=== PATIENT | male | born 1955 | race Caucasian/White ===

== ENCOUNTER 2019-07-27 12:32 | Outpatient (CLI) | payer BC ==
[2019-07-27 13:38] LABS: Bilirubin Negative (Negative); Blood, Urine Negative (Negative); Clarity Clear (Clear); Glucose, Urine (Dipstick) Negative (Negative); Leukocyte Negative (Negative); Nitrite Negative (Negative); Protein, Urine (Dipstick) Negative (Neg-Trace); Urobilinogen 0.2 mg/dL (Less than 2)
[2019-07-27 13:44] LABS: Bacteria/HPF None Seen HPF (None Seen); RBC/HPF None Seen HPF (0-3); Squamous Epithelial 0-3 HPF (0-3); WBC/HPF None Seen HPF (0-3)
--- NOTE | 2019-07-27 15:03 | ULT ---
SCROTAL ULTRASOUND: Date: 07/27/2019 INDICATION: Right side scrotal mass x5 months. FINDINGS: Both testicles have a homogeneous echotexture and appear symmetric. Both testicles exhibit normal and symmetric blood flow with color Doppler and spectral analysis evaluation. No evidence of hydrocele. There is a large right epididymal cyst measuring up to 2.0 cm, which would correspond to the palpable abnormality. IMPRESSION: Large right epididymal cyst measuring up to 2.0 cm. POS: [facility]
== END 2019-07-27 12:33 | disposition home or self-care (01) ==
LOC: MADLABBHPM 12:32
PROVIDERS: ATTEND Family Medicine
DX: N50.89 Other specified disorders of the male genital organs (principal); N50.3 Cyst of epididymis
CPT/HCPCS: 76870; 81001; 93976

== ENCOUNTER 2020-05-04 09:58 | Outpatient (CLI) | payer BC | END 2020-05-04 09:59 | disposition home or self-care (01) | LOC: MADLABBHPM 09:58 | PROVIDERS: ATTEND Family Medicine | DX: R00.2 Palpitations (principal) | CPT/HCPCS: 93005; 93010 ==